=== PATIENT | female | born 1950 ===

== ENCOUNTER 2020-04-19 17:55 | Inpatient (IN) | payer MEDICARE, MEDICAID ==
[2020-04-20 06:29] LABS: Basophils # (Auto) 0.1 K/mm3 (0.0-0.1); Basophils % (Auto) 0.8 % (0.0-1.8); Eosinophils # (Auto) 0.2 K/mm3 (0.0-0.4); Eosinophils % (Auto) 3.4 % (0.0-4.3); Hematocrit 32.3 % (30.3-42.9); Lymphocytes # (Auto) 1.5 K/mm3 (1.2-5.4); Lymphocytes % (Auto) 21.1 % (13.4-35.0); Mean Corpuscular HGB Conc 34 % (30-34); Mean Corpuscular Volume 85 fl (79-97); Monocytes # (Auto) 0.8 K/mm3 (0.0-0.8); Monocytes % (Auto) 11.5 % (0.0-7.3); Platelet Count 230 K/mm3 (140-440); Red Blood Count 3.79 M/mm3 (3.65-5.03); Red Cell Distribution Width 13.3 % (13.2-15.2)
[2020-04-20 06:53] LABS: Alanine Aminotransferase 18 units/L (7-56); Albumin 3.4 g/dL (3.9-5); Blood Urea Nitrogen 25 mg/dL (7-17); Calcium 9.6 mg/dL (8.4-10.2); Chol/HDL Ratio 2.86 %; HDL Cholesterol 72 mg/dL (40-59); Hemolysis Index 4; LDL Cholesterol,Direct 126 mg/dL (50-130)
[2020-04-20 06:58] LABS: BUN/Creatinine Ratio 36
--- NOTE | 2020-04-20 08:40 | History and Physical Report ---
GP History & Physical - History of Present Illness Date of admission: 04/19/20 Date of Examination: 04/20/20 Reason for Admission: Failure of Outpatient Treatment, Unable to care for self History of Present Illness: The patient's medical record was reviewed and the patient's progress was discussed with the nursing staff. The admission note states the patient recently moved into a halfway and was not happy there. She was in the hospital for covid 19. When she left she was taken to the halfway. The patient refused to get out of the vehicle and was returned to the hospital where she spent 2 weeks waiting on psych admission. Patient can be irritable and uncooperative at times. Victoriano Ayon is a 69y/o female who was recently placed in a halfway and did not like it there. It is documented that the patient refused to get out of the car and was returned back to the hospital. During my interview with the patient today, she is lying in bed with the linen pulled over her head. She is irritable and uncooperative. She doesn't give any insight into what's going on with her or her history. She shouts "what," when I call her name. When asking the patient did she know why she was admitted into the hospital, she replied "yo u ask them, since they are the ones who brought me here." I then asked the patient was she hallucinating or feeling suicidal, she replied, "no, I was not. Like I said, ask them." The patient then placed her head back beneath the linen and stated, "I don't have anything else to say. Talk to who brought me here." PAST PSYCHIATRIC HISTORY Unable to assess PAST MEDICAL HISTORY: None reported Family Psychiatric History: None reported or documented SOCIAL HISTORY Unable to assess REVIEW OF SYSTEMS Unable to assess MENTAL STATUS EXAMINATION General Appearance and Behavior: Age appropriate, good hygiene, not wearing appropriate clothes, irritable, withdrawn Cooperation: uncooperative, guarded Psychomotor Behavior: Psychomotor normal Mood: Affect and affective range: Irritable, restricted Insight and Judgment: Impaired Memory: Impaired Attention: limited Orientation: Confused Assessment and Plan Dementia with Behavioral Disturbance Treatment Plan Patient admitted for inpatient psychiatric evaluation, medication adjustment and close monitoring The patient's behavior, mood, sleep and appetite will be closely monitored. Patient enrolled in individual and group therapeutic sessions and encouraged to attend. Patient provided with a safe and structured environment. Patient's physical health needs will be addressed by the Hospitalist. Hospitalist Consulted Labs including CBC, CMP, Lipid profile and Hemoglobin A1C levels ordered for baseline reference Social Assessment will be completed and the Medical Coordinator Pesticide Use will work with patient and family to ensure a suitable and safe disposition Medication adjustment will be made as clinically indicated Start Risperidine 0.25mg po BID Start Trazodone 50mg po qhs Hold serquel Usual Wellness Restorationist/Preservation: - Start Trazodone 50 mg po QHS - Start Melatonin 5 mg po QHS to promote circadian rhythm - Start [place]-3 for brain health, reduce impulsivity, and as adjunctive treatment for mood disorder, continue upon discharge given overall benefits. - Start B1 prophylaxis with 200 mg po for 5 days The patient agreed on the treatment plan, understood the risk, benefit, alternative treatment, potential consequence of no treatment, and gave informed consent. Initial Certification I certify that the inpatient psychiatric services are required for treatment that could reasonably be expected to improve the patient's condition for aggression and irritability Estimated days: 7 Post hospital care: primary care provider, psychiatric provider The case was staffed with Dr. Sunshine Legal Status: Voluntary Reaction to Hospitalization: Accepting Medications and Allergies Allergies Allergy/AdvReac Type Severity Reaction Status Date / Time No Known Allergies Allergy Verified 04/20/20 02:32 Home Medications Medication Instructions Recorded Confirmed Last Taken Type ALPRAZolam [Xanax TAB] 0.5 mg PO DAILY 04/20/20 04/20/20 Unknown History Cyanocobalamin (Vitamin B-12) 500 mcg PO DAILY 04/20/20 04/20/20 Unknown History [Vitamin B-12] Melatonin [Melatonin 5MG TAB] 5 m2 PO HS 04/20/20 04/20/20 Unknown History QUEtiapine [SEROquel] 12.5 mg PO DAILY 04/20/20 04/20/20 Unknown History QUEtiapine [SEROquel] 37.5 mg PO HS 04/20/20 04/20/20 Unknown History Thiamine [Vitamin B-1] 100 mg PO QDAY 04/20/20 04/20/20 Unknown History Active Meds: Active Medications Trazodone HCl (Desyrel) 50 mg PO QHS [facility] Results - Results Labs/Vitals: Laboratory Last Values WBC 7.2 K/mm3 (4.5-11.0) 04/20/20 06:12 RBC 3.79 M/mm3 (3.65-5.03) 04/20/20 06:12 Hgb 11.0 gm/dl (10.1-14.3) 04/20/20 06:12 Hct 32.3 % (30.3-42.9) 04/20/20 06:12 MCV 85 fl (79-97) 04/20/20 06:12 MCH 29 pg (28-32) 04/20/20 06:12 MCHC 34 % (30-34) 04/20/20 06:12 RDW 13.3 % (13.2-15.2) 04/20/20 06:12 Plt Count 230 K/mm3 (140-440) 04/20/20 06:12 Lymph % (Auto) 21.1 % (13.4-35.0) 04/20/20 06:12 [place] % (Auto) 11.5 % (0.0-7.3) H 04/20/20 06:12 Eos % (Auto) 3.4 % (0.0-4.3) 04/20/20 06:12 Baso % (Auto) 0.8 % (0.0-1.8) 04/20/20 06:12 Lymph # (Auto) 1.5 K/mm3 (1.2-5.4) 04/20/20 06:12 [place] # (Auto) 0.8 K/mm3 (0.0-0.8) 04/20/20 06:12 Eos # (Auto) 0.2 K/mm3 (0.0-0.4) 04/20/20 06:12 Baso # (Auto) 0.1 K/mm3 (0.0-0.1) 04/20/20 06:12 Seg Neutrophils % 63.2 % (40.0-70.0) 04/20/20 06:12 Seg Neutrophils # 4.6 K/mm3 (1.8-7.7) 04/20/20 06:12 Sodium 142 mmol/L (137-145) 04/20/20 06:12 Potassium 4.6 mmol/L (3.6-5.0) 04/20/20 06:12 Chloride 105.4 mmol/L (98-107) 04/20/20 06:12 Carbon Dioxide 32 mmol/L (22-30) H 04/20/20 06:12 Anion Gap 9 mmol/L 04/20/20 06:12 BUN 25 mg/dL (7-17) H 04/20/20 06:12 Creatinine 0.7 mg/dL (0.6-1.2) 04/20/20 06:12 Estimated GFR > 60 ml/min 04/20/20 06:12 BUN/Creatinine Ratio 36 % 04/20/20 06:12 Glucose 121 mg/dL (65-100) H 04/20/20 06:12 POC Glucose 107 mg/dL (70-105) H 04/20/20 01:36 Hemoglobin A1c 6.3 % (4-6) H 04/20/20 06:12 Calcium 9.6 mg/dL (8.4-10.2) 04/20/20 06:12 Total Bilirubin 0.20 mg/dL (0.1-1.2) 04/20/20 06:12 AST 20 units/L (5-40) 04/20/20 06:12 ALT 18 units/L (7-56) 04/20/20 06:12 Alkaline Phosphatase 107 units/L (35-129) 04/20/20 06:12 Total Protein 6.4 g/dL (6.3-8.2) 04/20/20 06:12 Albumin 3.4 g/dL (3.9-5) L 04/20/20 06:12 Albumin/Globulin Ratio 1.1 % 04/20/20 06:12 Triglycerides 63 mg/dL (2-149) 04/20/20 06:12 Cholesterol 206 mg/dL (50-199) H 04/20/20 06:12 LDL Cholesterol Direct 126 mg/dL (50-130) 04/20/20 06:12 HDL Cholesterol 72 mg/dL (40-59) H 04/20/20 06:12 Cholesterol/HDL Ratio 2.86 % 04/20/20 06:12 TSH 1.750 mlU/mL (0.270-4.200) 04/20/20 06:12 Last Vital Signs Temp 97.4 F L 04/20/20 01:35 Pulse 82 04/20/20 01:35 Resp 18 04/20/20 01:35 BP 117/66 04/20/20 01:35 Pulse Ox 98 04/20/20 01:35 Physical Examination - Constitutional Vitals: Vital Signs Temp Pulse Resp BP Pulse Ox 97.4 F L 82 18 117/66 98 04/20/20 01:35 04/20/20 01:35 04/20/20 01:35 04/20/20 01:35 04/20/20 01:35 Temperature -Last 24 Hours Temperature 97.4 F Mental Status Exam - Vital signs Last Vital Signs Temp 97.4 F L 04/20/20 01:35 Pulse 82 04/20/20 01:35 Resp 18 04/20/20 01:35 BP 117/66 04/20/20 01:35 Pulse Ox 98 04/20/20 01:35 Physician Certification - Certification Statement Physician Certification Statement: This is an acknowledgement statement that VICTORIANO AYON is a 69 year old F who requires inpatient psychiatric admission for treatment which could reasonably be expected to improve the patient's condition for Estimated period of time patient will need to remain in the hospital: [ ] Plan for post-hospital care: [ ]
[2020-04-20] MEDS: risperiDONE 0.25 MG TAB PO SCH ×2 (10:09→21:44)
[2020-04-20] MEDS: THIAMINE 100 MG TAB PO SCH (10:09)
[2020-04-20] MEDS: ALPRAZolam 0.5 MG TAB PO SCH (10:09)
[2020-04-20] MEDS: CYANOCOBALAMIN (VIT B-12) 1000 MCG TAB PO SCH (12:01)
--- NOTE | 2020-04-20 16:27 | Consultation ---
History of Present Illness - Reason for Consult Consult date: 04/20/20 - History of Present Illness 69-year-old female with no medical history admitted to the psych facility with behavioral disturbance. HPI as per psych She was cently placed in a custodial and did not like it there. It is documented that the patient refused to get out of the car and was returned back to the hospital. During my interview with the patient today, she is lying in bed with the linen pulled over her head. She is irritable and uncooperative. She doesn't give any insight into what's going on with her or her history. She shouts "what," when I call her name. When asking the patient did she know why she was admitted into the hospital, she replied "you ask them, since they are the ones who brought me here." I then asked the patient was she hallucinating or feeling suicidal, she replied, "no, I was not. Like I said, ask them." The patient then placed her head back beneath the linen and stated, "I don't have anything else to say. Talk to who brought me here." I saw and examined patient in the psych facility this morning. Has no complaints. History limited by dementia. Labs reviewed. Home medications reviewed. Past History Past Medical History: No medical history Past Surgical History: No surgical history Social history: no significant social history Medications and Allergies Allergies Allergy/AdvReac Type Severity Reaction Status Date / Time No Known Allergies Allergy Verified 04/20/20 02:32 Home Medications Medication Instructions Recorded Confirmed Last Taken Type ALPRAZolam [Xanax TAB] 0.5 mg PO DAILY 04/20/20 04/20/20 Unknown History Cyanocobalamin (Vitamin B-12) 500 mcg PO DAILY 04/20/20 04/20/20 Unknown History [Vitamin B-12] Melatonin [Melatonin 5MG TAB] 5 m2 PO HS 04/20/20 04/20/20 Unknown History QUEtiapine [SEROquel] 12.5 mg PO DAILY 04/20/20 04/20/20 Unknown History QUEtiapine [SEROquel] 37.5 mg PO HS 04/20/20 04/20/20 Unknown History Thiamine [Vitamin B-1] 100 mg PO QDAY 04/20/20 04/20/20 Unknown History Active Meds: Active Medications Alprazolam (Xanax) 0.5 mg PO DAILY ON LICENSE OF [facility] Last Admin: 04/20/20 10:09 Dose: 0.5 mg Documented by: Cyanocobalamin (Vitamin B-12) 500 mcg PO DAILY ON LICENSE OF [facility] Last Admin: 04/20/20 12:01 Dose: 500 mcg Documented by: Melatonin (Melatonin) 5 mg PO HS ON LICENSE OF [facility] Risperidone (Risperdal) 0.25 mg PO BID ON LICENSE OF [facility] Last Admin: 04/20/20 10:09 Dose: 0.25 mg Documented by: Thiamine HCl (Vitamin B-1) 100 mg PO QDAY ON LICENSE OF [facility] Last Admin: 04/20/20 10:09 Dose: 100 mg Documented by: Trazodone HCl (Desyrel) 50 mg PO QHS ON LICENSE OF [facility] Exam - Constitutional Vitals: Temp Pulse Resp BP Pulse Ox 98.9 F 94 H 18 114/50 96 04/20/20 09:50 04/20/20 09:50 04/20/20 09:50 04/20/20 09:50 04/20/20 09:50 General appearance: Present: no acute distress, well-nourished - EENT Eyes: Present: PERRL ENT: hearing intact, clear oral mucosa - Neck Neck: Present: supple, normal ROM - Respiratory Respiratory effort: normal Respiratory: bilateral: CTA - Cardiovascular Heart Sounds: Present: S1 & S2, systolic murmur. Absent: rub, click - Extremities Extremities: pulses symmetrical, No edema Peripheral Pulses: within normal limits - Abdominal General gastrointestinal: Present: soft, non-tender, non-distended, normal bowel sounds Female genitourinary: Present: normal - Integumentary Integumentary: Present: clear, warm, dry - Musculoskeletal Musculoskeletal: gait normal, strength equal bilaterally - Psychiatric Psychiatric: appropriate mood/affect, intact judgment & insight - Neurologic Neurologic: CNII-XII intact, moves all extremities Results - Labs CBC & Chem 7: 04/20/20 06:12 04/20/20 06:12 Labs: Abnormal lab results 04/20/20 04/20/20 04/20/20 Range/Units 01:36 06:12 06:12 [place] % (Auto) 11.5 H (0.0-7.3) % Carbon Dioxide 32 H (22-30) mmol/L BUN 25 H (7-17) mg/dL Glucose 121 H (65-100) mg/dL POC Glucose 107 H (70-105) mg/dL Hemoglobin A1c (4-6) % Albumin 3.4 L (3.9-5) g/dL Cholesterol 206 H (50-199) mg/dL HDL Cholesterol 72 H (40-59) mg/dL 04/20/20 Range/Units 06:12 [place] % (Auto) (0.0-7.3) % Carbon Dioxide (22-30) mmol/L BUN (7-17) mg/dL Glucose (65-100) mg/dL POC Glucose (70-105) mg/dL Hemoglobin A1c 6.3 H (4-6) % Albumin (3.9-5) g/dL Cholesterol (50-199) mg/dL HDL Cholesterol (40-59) mg/dL Assessment and Plan Dementia with behavioral disturbance Psychiatric primary Adjusting medications TSH within normal limits. Check vitamin B12 and folate. Thank you for the consult.
[2020-04-20] MEDS: MELATONIN 5 MG TAB PO SCH (21:44)
[2020-04-20] MEDS: traZODone 50 MG TAB PO SCH (21:44)
--- NOTE | 2020-04-21 08:39 | Progress Note ---
Subjective Date of service: 04/21/20 Principal diagnosis: dementia with behavioral disturbance Subjective Comment: During my interview with the patient today, she is sitting in the dayroom, she is confused. She is irritable. She has an angry affect. She says she's "doing better." The patient then states "I'm ready to go." When asking about SI/HI or hallucinations, the patient says "what, who told you that. I'm not going to answer that." She then says, "never." REVIEW OF SYSTEMS Constitutional: Negative for weight loss ENT: Negative for stridor Respiratory: Negative for cough or hemoptysis All other systems reviewed and are negative MENTAL STATUS EXAMINATION General Appearance and Behavior: Age appropriate, good hygiene, not wearing appropriate clothes, irritable, withdrawn Cooperation: uncooperative Psychomotor Behavior: Psychomotor normal, guarded Mood: "alright" Affect and affective range: Irritable, restricted Insight and Judgment: Impaired Memory: Impaired Attention: limited Orientation: Confused Assessment and Plan Dementia with Behavioral Disturbance Treatment Plan Patient admitted for inpatient psychiatric evaluation, medication adjustment and close monitoring The patient's behavior, mood, sleep and appetite will be closely monitored. Patient enrolled in individual and group therapeutic sessions and encouraged to attend. Patient provided with a safe and structured environment. Patient's physical health needs will be addressed by the Hospitalist. Hospitalist Consulted Labs including CBC, CMP, Lipid profile and Hemoglobin A1C levels ordered for baseline reference Social Assessment will be completed and the Line Mover will work with patient and family to ensure a suitable and safe disposition Medication adjustment will be made as clinically indicated Increase Risperidine 0.5mg po BID Usual Wellness Congregation/Preservation: - Start Trazodone 50 mg po QHS - Start Melatonin 5 mg po QHS to promote circadian rhythm - Start [place]-3 for brain health, reduce impulsivity, and as adjunctive treatment for mood disorder, continue upon discharge given overall benefits. - Start B1 prophylaxis with 200 mg po for 5 days The patient agreed on the treatment plan, understood the risk, benefit, alternative treatment, potential consequence of no treatment, and gave informed consent. Estimated days: 6 Post hospital care: primary care provider, psychiatric provider The case was staffed with Dr. Sunshine Medications and Allergies Allergies Allergy/AdvReac Type Severity Reaction Status Date / Time No Known Allergies Allergy Verified 04/20/20 02:32 Home Medications Medication Instructions Recorded Confirmed Last Taken Type ALPRAZolam [Xanax TAB] 0.5 mg PO DAILY 04/20/20 04/20/20 Unknown History Cyanocobalamin (Vitamin B-12) 500 mcg PO DAILY 04/20/20 04/20/20 Unknown History [Vitamin B-12] Melatonin [Melatonin 5MG TAB] 5 m2 PO HS 04/20/20 04/20/20 Unknown History QUEtiapine [SEROquel] 12.5 mg PO DAILY 04/20/20 04/20/20 Unknown History QUEtiapine [SEROquel] 37.5 mg PO HS 04/20/20 04/20/20 Unknown History Thiamine [Vitamin B-1] 100 mg PO QDAY 04/20/20 04/20/20 Unknown History Active Meds: Active Medications Alprazolam (Xanax) 0.5 mg PO DAILY [facility] Last Admin: 04/20/20 10:09 Dose: 0.5 mg Documented by: Cyanocobalamin (Vitamin B-12) 500 mcg PO DAILY [facility] Last Admin: 04/20/20 12:01 Dose: 500 mcg Documented by: Melatonin (Melatonin) 5 mg PO [facility] Last Admin: 04/20/20 21:44 Dose: 5 mg Documented by: Risperidone (Risperdal) 0.25 mg PO BID [facility] Last Admin: 04/20/20 21:44 Dose: 0.25 mg Documented by: Thiamine HCl (Vitamin B-1) 100 mg PO QDAY [facility] Last Admin: 04/20/20 10:09 Dose: 100 mg Documented by: Trazodone HCl (Desyrel) 50 mg PO QHS [facility] Last Admin: 04/20/20 21:44 Dose: 50 mg Documented by: Results - Results Labs/Vitals: Laboratory Last Values WBC 7.2 K/mm3 (4.5-11.0) 04/20/20 06:12 RBC 3.79 M/mm3 (3.65-5.03) 04/20/20 06:12 Hgb 11.0 gm/dl (10.1-14.3) 04/20/20 06:12 Hct 32.3 % (30.3-42.9) 04/20/20 06:12 MCV 85 fl (79-97) 04/20/20 06:12 MCH 29 pg (28-32) 04/20/20 06:12 MCHC 34 % (30-34) 04/20/20 06:12 RDW 13.3 % (13.2-15.2) 04/20/20 06:12 Plt Count 230 K/mm3 (140-440) 04/20/20 06:12 Lymph % (Auto) 21.1 % (13.4-35.0) 04/20/20 06:12 [place] % (Auto) 11.5 % (0.0-7.3) H 04/20/20 06:12 Eos % (Auto) 3.4 % (0.0-4.3) 04/20/20 06:12 Baso % (Auto) 0.8 % (0.0-1.8) 04/20/20 06:12 Lymph # (Auto) 1.5 K/mm3 (1.2-5.4) 04/20/20 06:12 [place] # (Auto) 0.8 K/mm3 (0.0-0.8) 04/20/20 06:12 Eos # (Auto) 0.2 K/mm3 (0.0-0.4) 04/20/20 06:12 Baso # (Auto) 0.1 K/mm3 (0.0-0.1) 04/20/20 06:12 Seg Neutrophils % 63.2 % (40.0-70.0) 04/20/20 06:12 Seg Neutrophils # 4.6 K/mm3 (1.8-7.7) 04/20/20 06:12 Sodium 142 mmol/L (137-145) 04/20/20 06:12 Potassium 4.6 mmol/L (3.6-5.0) 04/20/20 06:12 Chloride 105.4 mmol/L (98-107) 04/20/20 06:12 Carbon Dioxide 32 mmol/L (22-30) H 04/20/20 06:12 Anion Gap 9 mmol/L 04/20/20 06:12 BUN 25 mg/dL (7-17) H 04/20/20 06:12 Creatinine 0.7 mg/dL (0.6-1.2) 04/20/20 06:12 Estimated GFR > 60 ml/min 04/20/20 06:12 BUN/Creatinine Ratio 36 % 04/20/20 06:12 Glucose 121 mg/dL (65-100) H 04/20/20 06:12 POC Glucose 107 mg/dL (70-105) H 04/20/20 01:36 Hemoglobin A1c 6.3 % (4-6) H 04/20/20 06:12 Calcium 9.6 mg/dL (8.4-10.2) 04/20/20 06:12 Total Bilirubin 0.20 mg/dL (0.1-1.2) 04/20/20 06:12 AST 20 units/L (5-40) 04/20/20 06:12 ALT 18 units/L (7-56) 04/20/20 06:12 Alkaline Phosphatase 107 units/L (35-129) 04/20/20 06:12 Total Protein 6.4 g/dL (6.3-8.2) 04/20/20 06:12 Albumin 3.4 g/dL (3.9-5) L 04/20/20 06:12 Albumin/Globulin Ratio 1.1 % 04/20/20 06:12 Triglycerides 63 mg/dL (2-149) 04/20/20 06:12 Cholesterol 206 mg/dL (50-199) H 04/20/20 06:12 LDL Cholesterol Direct 126 mg/dL (50-130) 04/20/20 06:12 HDL Cholesterol 72 mg/dL (40-59) H 04/20/20 06:12 Cholesterol/HDL Ratio 2.86 % 04/20/20 06:12 Vitamin B12 511.5 pg/mL (211-911) 04/20/20 06:12 Folate 10.20 ng/mL (7.3-26.0) 04/20/20 06:12 TSH 1.750 mlU/mL (0.270-4.200) 04/20/20 06:12 Last Vital Signs Temp 98.4 F 04/21/20 08:28 Pulse 93 H 04/21/20 08:28 Resp 18 04/21/20 08:28 BP 119/44 04/21/20 08:28 Pulse Ox 98 04/21/20 08:28
[2020-04-21] MEDS: risperiDONE 0.25 MG TAB PO SCH ×2 (09:07→21:30)
[2020-04-21] MEDS: CYANOCOBALAMIN (VIT B-12) 1000 MCG TAB PO SCH (09:08)
[2020-04-21] MEDS: ALPRAZolam 0.5 MG TAB PO SCH (09:08)
[2020-04-21] MEDS: THIAMINE 100 MG TAB PO SCH (09:08)
--- NOTE | 2020-04-21 20:40 | Progress Note ---
Assessment and Plan - Patient Problems (1) Vascular dementia Current Visit: Yes Status: Acute Qualifiers: Dementia behavioral disturbance: without behavioral disturbance Qualified Code(s): F01.50 - Vascular dementia without behavioral disturbance Plan to address problem: Verbal prompting, verbal redirection, benzodiazepine therapy as clinically indicated, supportive care. (2) Cerebral atherosclerosis Current Visit: Yes Status: Acute Plan to address problem: Risk factor reduction, supportive care. History Interval history: 69 YO Female with Vascular Dementia, Cerebral Atherosclerosis admitted to [facility] for psychiatric stabilization. Patient resting comfortably. Patient cooperative. Patient denies complaints. No reported nursing events. Hospitalist Physical - Constitutional Vitals: Temp Pulse Resp BP Pulse Ox 98.4 F 93 H 18 119/44 98 04/21/20 08:28 04/21/20 08:28 04/21/20 08:28 04/21/20 08:28 04/21/20 08:28 General appearance: Present: no acute distress, well-nourished - EENT Eyes: Present: PERRL ENT: hearing intact - Neck Neck: Present: supple - Respiratory Respiratory: bilateral: CTA - Cardiovascular Rhythm: regular Heart Sounds: Present: S1 & S2 - Extremities Extremities: no ischemia Peripheral Pulses: within normal limits - Abdominal General gastrointestinal: soft, non-tender, non-distended - Integumentary Integumentary: Present: clear, dry - Psychiatric Psychiatric: cooperative - Neurologic Neurologic: CNII-XII intact Results - Labs CBC & Chem 7: 04/20/20 06:12 04/20/20 06:12 Labs: Laboratory Last Values WBC 7.2 K/mm3 (4.5-11.0) 04/20/20 06:12 RBC 3.79 M/mm3 (3.65-5.03) 04/20/20 06:12 Hgb 11.0 gm/dl (10.1-14.3) 04/20/20 06:12 Hct 32.3 % (30.3-42.9) 04/20/20 06:12 MCV 85 fl (79-97) 04/20/20 06:12 MCH 29 pg (28-32) 04/20/20 06:12 MCHC 34 % (30-34) 04/20/20 06:12 RDW 13.3 % (13.2-15.2) 04/20/20 06:12 Plt Count 230 K/mm3 (140-440) 04/20/20 06:12 Lymph % (Auto) 21.1 % (13.4-35.0) 04/20/20 06:12 [place] % (Auto) 11.5 % (0.0-7.3) H 04/20/20 06:12 Eos % (Auto) 3.4 % (0.0-4.3) 04/20/20 06:12 Baso % (Auto) 0.8 % (0.0-1.8) 04/20/20 06:12 Lymph # (Auto) 1.5 K/mm3 (1.2-5.4) 04/20/20 06:12 [place] # (Auto) 0.8 K/mm3 (0.0-0.8) 04/20/20 06:12 Eos # (Auto) 0.2 K/mm3 (0.0-0.4) 04/20/20 06:12 Baso # (Auto) 0.1 K/mm3 (0.0-0.1) 04/20/20 06:12 Seg Neutrophils % 63.2 % (40.0-70.0) 04/20/20 06:12 Seg Neutrophils # 4.6 K/mm3 (1.8-7.7) 04/20/20 06:12 Sodium 142 mmol/L (137-145) 04/20/20 06:12 Potassium 4.6 mmol/L (3.6-5.0) 04/20/20 06:12 Chloride 105.4 mmol/L (98-107) 04/20/20 06:12 Carbon Dioxide 32 mmol/L (22-30) H 04/20/20 06:12 Anion Gap 9 mmol/L 04/20/20 06:12 BUN 25 mg/dL (7-17) H 04/20/20 06:12 Creatinine 0.7 mg/dL (0.6-1.2) 04/20/20 06:12 Estimated GFR > 60 ml/min 04/20/20 06:12 BUN/Creatinine Ratio 36 % 04/20/20 06:12 Glucose 121 mg/dL (65-100) H 04/20/20 06:12 POC Glucose 107 mg/dL (70-105) H 04/20/20 01:36 Hemoglobin A1c 6.3 % (4-6) H 04/20/20 06:12 Calcium 9.6 mg/dL (8.4-10.2) 04/20/20 06:12 Total Bilirubin 0.20 mg/dL (0.1-1.2) 04/20/20 06:12 AST 20 units/L (5-40) 04/20/20 06:12 ALT 18 units/L (7-56) 04/20/20 06:12 Alkaline Phosphatase 107 units/L (35-129) 04/20/20 06:12 Total Protein 6.4 g/dL (6.3-8.2) 04/20/20 06:12 Albumin 3.4 g/dL (3.9-5) L 04/20/20 06:12 Albumin/Globulin Ratio 1.1 % 04/20/20 06:12 Triglycerides 63 mg/dL (2-149) 04/20/20 06:12 Cholesterol 206 mg/dL (50-199) H 04/20/20 06:12 LDL Cholesterol Direct 126 mg/dL (50-130) 04/20/20 06:12 HDL Cholesterol 72 mg/dL (40-59) H 04/20/20 06:12 Cholesterol/HDL Ratio 2.86 % 04/20/20 06:12 Vitamin B12 511.5 pg/mL (211-911) 04/20/20 06:12 Folate 10.20 ng/mL (7.3-26.0) 04/20/20 06:12 TSH 1.750 mlU/mL (0.270-4.200) 04/20/20 06:12 Ghotra/IV: Voiding Method Toilet Active Medications - Current Medications Current Medications: Generic Name Dose Route Start Last Admin Trade Name Freq PRN Reason Stop Dose Admin Alprazolam 0.5 mg 04/20/20 10:00 04/21/20 09:08 Xanax PO 0.5 mg DAILY [facility] Administration Cyanocobalamin 500 mcg 04/20/20 10:00 04/21/20 09:08 Vitamin B-12 PO 500 mcg DAILY [facility] Administration Melatonin 5 mg 04/20/20 22:00 04/20/20 21:44 Melatonin PO 5 mg HS [facility] Administration Risperidone 0.5 mg 04/21/20 10:00 04/21/20 09:07 Risperdal PO 0.5 mg BID [facility] Administration Thiamine HCl 100 mg 04/20/20 10:00 04/21/20 09:08 Vitamin B-1 PO 100 mg QDAY [facility] Administration Trazodone HCl 50 mg 04/20/20 22:00 04/20/20 21:44 Desyrel PO 50 mg QHS [facility] Administration
[2020-04-21] MEDS: traZODone 50 MG TAB PO SCH (21:31)
[2020-04-21] MEDS: MELATONIN 5 MG TAB PO SCH (21:31)
--- NOTE | 2020-04-22 08:09 | Progress Note ---
Subjective Date of service: 04/22/20 Principal diagnosis: dementia with behavioral disturbance Subjective Comment: The patient's medical record was reviewed and the patient's progress was discussed with the nursing staff. The nurse note states the patient denies pain, SI/HI. She is Preoccupy and verbalizing the need to go home to meet with her boyfriend. Patient is irritable, using F and B words, During my interview with the patient today, she is lying down. She is much more calm and cooperative today. She is confused. The patient does not exhibit any signs of irritability as previous days. She greats me with "good morning" as I'm entering her room. The patient says she's "doing okay." She asks if I thought she could go home today. The patient denies SI/HI or hallucinations of any kind. The patient becomes tearful at the end of the visit, when talking about going home. Reason for continued inpatient treatment: Although the patient appeared to be improved today, she is easily irritated and agitated, per nursing staff. Will continue to treat the patient and monitor for effectiveness of meds and any adverse effects. REVIEW OF SYSTEMS Constitutional: Negative for weight loss ENT: Negative for stridor Respiratory: Negative for cough or hemoptysis All other systems reviewed and are negative MENTAL STATUS EXAMINATION General Appearance and Behavior: Age appropriate, good hygiene, not wearing appropriate clothes, calm and cooperative Cooperation: cooperative Psychomotor Behavior: Psychomotor normal Mood: "alright" Affect and affective range: congruent with stated mood Suicidal thoughts: Denies Homicidal: Denies Hallucinations: Denies Delusions: None elicited Insight and Judgment: Impaired Memory: Impaired Attention: limited Orientation: Confused Assessment and Plan Dementia with Behavioral Disturbance Treatment Plan Patient admitted for inpatient psychiatric evaluation, medication adjustment and close monitoring The patient's behavior, mood, sleep and appetite will be closely monitored. Patient enrolled in individual and group therapeutic sessions and encouraged to attend. Patient provided with a safe and structured environment. Patient's physical health needs will be addressed by the Hospitalist. Hospitalist Consulted Labs including CBC, CMP, Lipid profile and Hemoglobin A1C levels ordered for baseline reference Social Assessment will be completed and the Electrical & Instrumentation Supervisor will work with patient and family to ensure a suitable and safe disposition Medication adjustment will be made as clinically indicated Increase Risperidine 1mg po BID Start Depakote DR 125mg po BID Usual Wellness Anabaptism/Preservation: - Start Trazodone 50 mg po QHS - Start Melatonin 5 mg po QHS to promote circadian rhythm - Start [place]-3 for brain health, reduce impulsivity, and as adjunctive treatment for mood disorder, continue upon discharge given overall benefits. - Start B1 prophylaxis with 200 mg po for 5 days The patient agreed on the treatment plan, understood the risk, benefit, alternative treatment, potential consequence of no treatment, and gave informed consent. Estimated days: 3 Post hospital care: primary care provider, psychiatric provider The case was staffed with Dr. Sunshine Medications and Allergies Allergies Allergy/AdvReac Type Severity Reaction Status Date / Time No Known Allergies Allergy Verified 04/20/20 02:32 Home Medications Medication Instructions Recorded Confirmed Last Taken Type ALPRAZolam [Xanax TAB] 0.5 mg PO DAILY 04/20/20 04/20/20 Unknown History Cyanocobalamin (Vitamin B-12) 500 mcg PO DAILY 04/20/20 04/20/20 Unknown History [Vitamin B-12] Melatonin [Melatonin 5MG TAB] 5 m2 PO HS 04/20/20 04/20/20 Unknown History QUEtiapine [SEROquel] 12.5 mg PO DAILY 04/20/20 04/20/20 Unknown History QUEtiapine [SEROquel] 37.5 mg PO HS 04/20/20 04/20/20 Unknown History Thiamine [Vitamin B-1] 100 mg PO QDAY 04/20/20 04/20/20 Unknown History Active Meds: Active Medications Alprazolam (Xanax) 0.5 mg PO DAILY [facility] Last Admin: 04/21/20 09:08 Dose: 0.5 mg Documented by: Cyanocobalamin (Vitamin B-12) 500 mcg PO DAILY [facility] Last Admin: 04/21/20 09:08 Dose: 500 mcg Documented by: Melatonin (Melatonin) 5 mg PO [facility] Last Admin: 04/21/20 21:31 Dose: 5 mg Documented by: Risperidone (Risperdal) 0.5 mg PO BID [facility] Last Admin: 04/21/20 21:30 Dose: 0.5 mg Documented by: Thiamine HCl (Vitamin B-1) 100 mg PO QDAY [facility] Last Admin: 04/21/20 09:08 Dose: 100 mg Documented by: Trazodone HCl (Desyrel) 50 mg PO QHS [facility] Last Admin: 04/21/20 21:31 Dose: 50 mg Documented by: Results - Results Labs/Vitals: Laboratory Last Values WBC 7.2 K/mm3 (4.5-11.0) 04/20/20 06:12 RBC 3.79 M/mm3 (3.65-5.03) 04/20/20 06:12 Hgb 11.0 gm/dl (10.1-14.3) 04/20/20 06:12 Hct 32.3 % (30.3-42.9) 04/20/20 06:12 MCV 85 fl (79-97) 04/20/20 06:12 MCH 29 pg (28-32) 04/20/20 06:12 MCHC 34 % (30-34) 04/20/20 06:12 RDW 13.3 % (13.2-15.2) 04/20/20 06:12 Plt Count 230 K/mm3 (140-440) 04/20/20 06:12 Lymph % (Auto) 21.1 % (13.4-35.0) 04/20/20 06:12 [place] % (Auto) 11.5 % (0.0-7.3) H 04/20/20 06:12 Eos % (Auto) 3.4 % (0.0-4.3) 04/20/20 06:12 Baso % (Auto) 0.8 % (0.0-1.8) 04/20/20 06:12 Lymph # (Auto) 1.5 K/mm3 (1.2-5.4) 04/20/20 06:12 [place] # (Auto) 0.8 K/mm3 (0.0-0.8) 04/20/20 06:12 Eos # (Auto) 0.2 K/mm3 (0.0-0.4) 04/20/20 06:12 Baso # (Auto) 0.1 K/mm3 (0.0-0.1) 04/20/20 06:12 Seg Neutrophils % 63.2 % (40.0-70.0) 04/20/20 06:12 Seg Neutrophils # 4.6 K/mm3 (1.8-7.7) 04/20/20 06:12 Sodium 142 mmol/L (137-145) 04/20/20 06:12 Potassium 4.6 mmol/L (3.6-5.0) 04/20/20 06:12 Chloride 105.4 mmol/L (98-107) 04/20/20 06:12 Carbon Dioxide 32 mmol/L (22-30) H 04/20/20 06:12 Anion Gap 9 mmol/L 04/20/20 06:12 BUN 25 mg/dL (7-17) H 04/20/20 06:12 Creatinine 0.7 mg/dL (0.6-1.2) 04/20/20 06:12 Estimated GFR > 60 ml/min 04/20/20 06:12 BUN/Creatinine Ratio 36 % 04/20/20 06:12 Glucose 121 mg/dL (65-100) H 04/20/20 06:12 POC Glucose 107 mg/dL (70-105) H 04/20/20 01:36 Hemoglobin A1c 6.3 % (4-6) H 04/20/20 06:12 Calcium 9.6 mg/dL (8.4-10.2) 04/20/20 06:12 Total Bilirubin 0.20 mg/dL (0.1-1.2) 04/20/20 06:12 AST 20 units/L (5-40) 04/20/20 06:12 ALT 18 units/L (7-56) 04/20/20 06:12 Alkaline Phosphatase 107 units/L (35-129) 04/20/20 06:12 Total Protein 6.4 g/dL (6.3-8.2) 04/20/20 06:12 Albumin 3.4 g/dL (3.9-5) L 04/20/20 06:12 Albumin/Globulin Ratio 1.1 % 04/20/20 06:12 Triglycerides 63 mg/dL (2-149) 04/20/20 06:12 Cholesterol 206 mg/dL (50-199) H 04/20/20 06:12 LDL Cholesterol Direct 126 mg/dL (50-130) 04/20/20 06:12 HDL Cholesterol 72 mg/dL (40-59) H 04/20/20 06:12 Cholesterol/HDL Ratio 2.86 % 04/20/20 06:12 Vitamin B12 511.5 pg/mL (211-911) 04/20/20 06:12 Folate 10.20 ng/mL (7.3-26.0) 04/20/20 06:12 TSH 1.750 mlU/mL (0.270-4.200) 04/20/20 06:12 Last Vital Signs Temp 99.0 F 04/21/20 22:00 Pulse 99 H 04/21/20 22:00 Resp 20 04/21/20 22:00 BP 147/84 04/21/20 22:00 Pulse Ox 97 04/21/20 22:00
[2020-04-22] MEDS: THIAMINE 100 MG TAB PO SCH (10:10)
[2020-04-22] MEDS: CYANOCOBALAMIN (VIT B-12) 1000 MCG TAB PO SCH (10:10)
[2020-04-22] MEDS: DIVALPROEX DR 125 MG TAB PO SCH ×2 (10:11→21:17)
[2020-04-22] MEDS: risperiDONE 1 MG TAB PO SCH ×2 (10:11→21:18)
[2020-04-22] MEDS: ALPRAZolam 0.5 MG TAB PO SCH (10:11)
[2020-04-22] MEDS: traZODone 50 MG TAB PO SCH (21:18)
[2020-04-22] MEDS: MELATONIN 5 MG TAB PO SCH (21:18)
--- NOTE | 2020-04-23 08:08 | Progress Note ---
Subjective Date of service: 04/23/20 Principal diagnosis: dementia with behavioral disturbance Subjective Comment: The patient's medical record was reviewed and the patient's progress was discussed with the nursing staff. The nurse note states the patient spent the evening in activity room interacting with peer, pt is alert and oriented to person and place, calm and cooperative, no behavioral issue, able to make needs known, medication compliant, good appetite, no distress noted. During my interview with the patient today, she is lying down. She is much more calm and cooperative today. She is confused. She is pleasant this morning. She greets me as I'm entering the room "hey sweetie." She says she slept good. The patient is inquiring about going home. She denies SI/HI. She also denies hallucinations. Reason for continued inpatient treatment: The patient appears to be progressing well. She has had episodes of being easily irritated and agitated. Will continue to treat the patient and monitor for effectiveness of meds and any adverse effects. The patient will need placement in order to ensue a safe discharge. REVIEW OF SYSTEMS Constitutional: Negative for weight loss ENT: Negative for stridor Respiratory: Negative for cough or hemoptysis All other systems reviewed and are negative MENTAL STATUS EXAMINATION General Appearance and Behavior: Age appropriate, good hygiene, not wearing appropriate clothes, calm and cooperative Cooperation: cooperative Psychomotor Behavior: Psychomotor normal Mood: "alright" Affect and affective range: congruent with stated mood Suicidal thoughts: Denies Homicidal: Denies Hallucinations: Denies Delusions: None elicited Insight and Judgment: Impaired Memory: Impaired Attention: limited Orientation: Confused Assessment and Plan Dementia with Behavioral Disturbance Treatment Plan Patient admitted for inpatient psychiatric evaluation, medication adjustment and close monitoring The patient's behavior, mood, sleep and appetite will be closely monitored. Patient enrolled in individual and group therapeutic sessions and encouraged to attend. Patient provided with a safe and structured environment. Patient's physical health needs will be addressed by the Hospitalist. Hospitalist Consulted Labs including CBC, CMP, Lipid profile and Hemoglobin A1C levels ordered for baseline reference Social Assessment will be completed and the Circus Rider will work with patient and family to ensure a suitable and safe disposition Medication adjustment will be made as clinically indicated Increase Risperidine 1mg po BID yesterday Start Depakote DR 125mg po BID yesterday No changes made today Usual Wellness Worship/Preservation: - Start Trazodone 50 mg po QHS - Start Melatonin 5 mg po QHS to promote circadian rhythm - Start [place]-3 for brain health, reduce impulsivity, and as adjunctive treatment for mood disorder, continue upon discharge given overall benefits. - Start B1 prophylaxis with 200 mg po for 5 days The patient agreed on the treatment plan, understood the risk, benefit, alternative treatment, potential consequence of no treatment, and gave informed consent. Estimated days: 2 Post hospital care: primary care provider, psychiatric provider The case was staffed with Dr. Sunshine Medications and Allergies Allergies Allergy/AdvReac Type Severity Reaction Status Date / Time No Known Allergies Allergy Verified 04/20/20 02:32 Home Medications Medication Instructions Recorded Confirmed Last Taken Type ALPRAZolam [Xanax TAB] 0.5 mg PO DAILY 04/20/20 04/20/20 Unknown History Cyanocobalamin (Vitamin B-12) 500 mcg PO DAILY 04/20/20 04/20/20 Unknown History [Vitamin B-12] Melatonin [Melatonin 5MG TAB] 5 m2 PO HS 04/20/20 04/20/20 Unknown History QUEtiapine [SEROquel] 12.5 mg PO DAILY 04/20/20 04/20/20 Unknown History QUEtiapine [SEROquel] 37.5 mg PO HS 04/20/20 04/20/20 Unknown History Thiamine [Vitamin B-1] 100 mg PO QDAY 04/20/20 04/20/20 Unknown History Active Meds: Active Medications Alprazolam (Xanax) 0.5 mg PO DAILY [facility] Last Admin: 04/22/20 10:11 Dose: 0.5 mg Documented by: Cyanocobalamin (Vitamin B-12) 500 mcg PO DAILY [facility] Last Admin: 04/22/20 10:10 Dose: 500 mcg Documented by: Divalproex Sodium (Depakote Dr) 125 mg PO BID [facility] Last Admin: 04/22/20 21:17 Dose: 125 mg Documented by: Melatonin (Melatonin) 5 mg PO [facility] Last Admin: 04/22/20 21:18 Dose: 5 mg Documented by: Risperidone (Risperdal) 1 mg PO BID [facility] Last Admin: 04/22/20 21:18 Dose: 1 mg Documented by: Thiamine HCl (Vitamin B-1) 100 mg PO QDAY [facility] Last Admin: 04/22/20 10:10 Dose: 100 mg Documented by: Trazodone HCl (Desyrel) 50 mg PO QHS [facility] Last Admin: 04/22/20 21:18 Dose: 50 mg Documented by: Results - Results Labs/Vitals: Laboratory Last Values WBC 7.2 K/mm3 (4.5-11.0) 04/20/20 06:12 RBC 3.79 M/mm3 (3.65-5.03) 04/20/20 06:12 Hgb 11.0 gm/dl (10.1-14.3) 04/20/20 06:12 Hct 32.3 % (30.3-42.9) 04/20/20 06:12 MCV 85 fl (79-97) 04/20/20 06:12 MCH 29 pg (28-32) 04/20/20 06:12 MCHC 34 % (30-34) 04/20/20 06:12 RDW 13.3 % (13.2-15.2) 04/20/20 06:12 Plt Count 230 K/mm3 (140-440) 04/20/20 06:12 Lymph % (Auto) 21.1 % (13.4-35.0) 04/20/20 06:12 [place] % (Auto) 11.5 % (0.0-7.3) H 04/20/20 06:12 Eos % (Auto) 3.4 % (0.0-4.3) 04/20/20 06:12 Baso % (Auto) 0.8 % (0.0-1.8) 04/20/20 06:12 Lymph # (Auto) 1.5 K/mm3 (1.2-5.4) 04/20/20 06:12 [place] # (Auto) 0.8 K/mm3 (0.0-0.8) 04/20/20 06:12 Eos # (Auto) 0.2 K/mm3 (0.0-0.4) 04/20/20 06:12 Baso # (Auto) 0.1 K/mm3 (0.0-0.1) 04/20/20 06:12 Seg Neutrophils % 63.2 % (40.0-70.0) 04/20/20 06:12 Seg Neutrophils # 4.6 K/mm3 (1.8-7.7) 04/20/20 06:12 Sodium 142 mmol/L (137-145) 04/20/20 06:12 Potassium 4.6 mmol/L (3.6-5.0) 04/20/20 06:12 Chloride 105.4 mmol/L (98-107) 04/20/20 06:12 Carbon Dioxide 32 mmol/L (22-30) H 04/20/20 06:12 Anion Gap 9 mmol/L 04/20/20 06:12 BUN 25 mg/dL (7-17) H 04/20/20 06:12 Creatinine 0.7 mg/dL (0.6-1.2) 04/20/20 06:12 Estimated GFR > 60 ml/min 04/20/20 06:12 BUN/Creatinine Ratio 36 % 04/20/20 06:12 Glucose 121 mg/dL (65-100) H 04/20/20 06:12 POC Glucose 106 mg/dL (70-105) H 04/23/20 06:45 Hemoglobin A1c 6.3 % (4-6) H 04/20/20 06:12 Calcium 9.6 mg/dL (8.4-10.2) 04/20/20 06:12 Total Bilirubin 0.20 mg/dL (0.1-1.2) 04/20/20 06:12 AST 20 units/L (5-40) 04/20/20 06:12 ALT 18 units/L (7-56) 04/20/20 06:12 Alkaline Phosphatase 107 units/L (35-129) 04/20/20 06:12 Total Protein 6.4 g/dL (6.3-8.2) 04/20/20 06:12 Albumin 3.4 g/dL (3.9-5) L 04/20/20 06:12 Albumin/Globulin Ratio 1.1 % 04/20/20 06:12 Triglycerides 63 mg/dL (2-149) 04/20/20 06:12 Cholesterol 206 mg/dL (50-199) H 04/20/20 06:12 LDL Cholesterol Direct 126 mg/dL (50-130) 04/20/20 06:12 HDL Cholesterol 72 mg/dL (40-59) H 04/20/20 06:12 Cholesterol/HDL Ratio 2.86 % 04/20/20 06:12 Vitamin B12 511.5 pg/mL (211-911) 04/20/20 06:12 Folate 10.20 ng/mL (7.3-26.0) 04/20/20 06:12 TSH 1.750 mlU/mL (0.270-4.200) 04/20/20 06:12 Last Vital Signs Temp 98.1 F 04/22/20 22:00 Pulse 80 04/22/20 22:00 Resp 16 04/22/20 22:00 BP 105/60 04/22/20 22:00 Pulse Ox 99 04/22/20 22:00
[2020-04-23] MEDS: DIVALPROEX DR 125 MG TAB PO SCH ×2 (09:08→21:25)
[2020-04-23] MEDS: THIAMINE 100 MG TAB PO SCH (09:08)
[2020-04-23] MEDS: ALPRAZolam 0.5 MG TAB PO SCH (09:08)
[2020-04-23] MEDS: risperiDONE 1 MG TAB PO SCH ×2 (09:08→21:25)
[2020-04-23] MEDS: CYANOCOBALAMIN (VIT B-12) 1000 MCG TAB PO SCH (09:09)
[2020-04-23] MEDS: MELATONIN 5 MG TAB PO SCH (21:25)
[2020-04-23] MEDS: traZODone 50 MG TAB PO SCH (21:25)
--- NOTE | 2020-04-24 07:28 | Progress Note ---
Subjective Date of service: 04/24/20 Principal diagnosis: dementia with behavioral disturbance Subjective Comment: Per Psych Nurse: Today the patient interacted appropriately with her peers. She was incontinent of urine x 3. Patient was medication compliant. She denies si/hi/ah/vh. This evening the patient smiled at times. She reports she is looking forward to going home tomorrow. She interacted well and was medication compliant. Will continue to monitor patient for safety. Psych Progress Patient projected to be discharged today but no placement yet, no behavioral disturbances, no acute concerns. Patient reports she is doing just fine and ready to go home, reports doing a lot better. Reason for continued inpatient treatment: Patient ready to be discharged pending safety discharge and placement. REVIEW OF SYSTEMS Constitutional: Negative for weight loss ENT: Negative for stridor Respiratory: Negative for cough or hemoptysis All other systems reviewed and are negative MENTAL STATUS EXAMINATION General Appearance and Behavior: Age appropriate, good hygiene, not wearing appropriate clothes, calm and cooperative Cooperation: cooperative Psychomotor Behavior: Psychomotor normal Mood: "alright" Affect and affective range: congruent with stated mood Suicidal thoughts: Denies Homicidal: Denies Hallucinations: Denies Delusions: None elicited Insight and Judgment: Impaired Memory: Impaired Attention: limited Orientation: Confused Assessment and Plan Dementia with Behavioral Disturbance Treatment Plan Patient admitted for inpatient psychiatric evaluation, medication adjustment and close monitoring The patient's behavior, mood, sleep and appetite will be closely monitored. Patient enrolled in individual and group therapeutic sessions and encouraged to attend. Patient provided with a safe and structured environment. Patient's physical health needs will be addressed by the Hospitalist. Hospitalist Consulted Labs including CBC, CMP, Lipid profile and Hemoglobin A1C levels ordered for baseline reference Social Assessment will be completed and the Theatre Program Director will work with patient and family to ensure a suitable and safe disposition Medication adjustment will be made as clinically indicated No changes made today Usual Wellness Religion/Preservation: The patient agreed on the treatment plan, understood the risk, benefit, alternative treatment, potential consequence of no treatment, and gave informed consent. Estimated days: 1 Post hospital care: primary care provider, psychiatric provider The case was staffed with Dr. Sunshine Medications and Allergies Allergies Allergy/AdvReac Type Severity Reaction Status Date / Time No Known Allergies Allergy Verified 04/20/20 02:32 Home Medications Medication Instructions Recorded Confirmed Last Taken Type ALPRAZolam [Xanax TAB] 0.5 mg PO DAILY 04/20/20 04/20/20 Unknown History Cyanocobalamin (Vitamin B-12) 500 mcg PO DAILY 04/20/20 04/20/20 Unknown History [Vitamin B-12] Melatonin [Melatonin 5MG TAB] 5 m2 PO HS 04/20/20 04/20/20 Unknown History QUEtiapine [SEROquel] 12.5 mg PO DAILY 04/20/20 04/20/20 Unknown History QUEtiapine [SEROquel] 37.5 mg PO HS 04/20/20 04/20/20 Unknown History Thiamine [Vitamin B-1] 100 mg PO QDAY 04/20/20 04/20/20 Unknown History Active Meds: Active Medications Alprazolam (Xanax) 0.5 mg PO DAILY [facility] Last Admin: 04/23/20 09:08 Dose: 0.5 mg Documented by: Cyanocobalamin (Vitamin B-12) 500 mcg PO DAILY [facility] Last Admin: 04/23/20 09:09 Dose: 500 mcg Documented by: Divalproex Sodium (Depakote Dr) 125 mg PO BID [facility] Last Admin: 04/23/20 21:25 Dose: 125 mg Documented by: Melatonin (Melatonin) 5 mg PO [facility] Last Admin: 04/23/20 21:25 Dose: 5 mg Documented by: Risperidone (Risperdal) 1 mg PO BID [facility] Last Admin: 04/23/20 21:25 Dose: 1 mg Documented by: Thiamine HCl (Vitamin B-1) 100 mg PO QDAY [facility] Last Admin: 04/23/20 09:08 Dose: 100 mg Documented by: Trazodone HCl (Desyrel) 50 mg PO QHS [facility] Last Admin: 04/23/20 21:25 Dose: 50 mg Documented by: Results - Results Labs/Vitals: Laboratory Last Values WBC 7.2 K/mm3 (4.5-11.0) 04/20/20 06:12 RBC 3.79 M/mm3 (3.65-5.03) 04/20/20 06:12 Hgb 11.0 gm/dl (10.1-14.3) 04/20/20 06:12 Hct 32.3 % (30.3-42.9) 04/20/20 06:12 MCV 85 fl (79-97) 04/20/20 06:12 MCH 29 pg (28-32) 04/20/20 06:12 MCHC 34 % (30-34) 04/20/20 06:12 RDW 13.3 % (13.2-15.2) 04/20/20 06:12 Plt Count 230 K/mm3 (140-440) 04/20/20 06:12 Lymph % (Auto) 21.1 % (13.4-35.0) 04/20/20 06:12 [place] % (Auto) 11.5 % (0.0-7.3) H 04/20/20 06:12 Eos % (Auto) 3.4 % (0.0-4.3) 04/20/20 06:12 Baso % (Auto) 0.8 % (0.0-1.8) 04/20/20 06:12 Lymph # (Auto) 1.5 K/mm3 (1.2-5.4) 04/20/20 06:12 [place] # (Auto) 0.8 K/mm3 (0.0-0.8) 04/20/20 06:12 Eos # (Auto) 0.2 K/mm3 (0.0-0.4) 04/20/20 06:12 Baso # (Auto) 0.1 K/mm3 (0.0-0.1) 04/20/20 06:12 Seg Neutrophils % 63.2 % (40.0-70.0) 04/20/20 06:12 Seg Neutrophils # 4.6 K/mm3 (1.8-7.7) 04/20/20 06:12 Sodium 142 mmol/L (137-145) 04/20/20 06:12 Potassium 4.6 mmol/L (3.6-5.0) 04/20/20 06:12 Chloride 105.4 mmol/L (98-107) 04/20/20 06:12 Carbon Dioxide 32 mmol/L (22-30) H 04/20/20 06:12 Anion Gap 9 mmol/L 04/20/20 06:12 BUN 25 mg/dL (7-17) H 04/20/20 06:12 Creatinine 0.7 mg/dL (0.6-1.2) 04/20/20 06:12 Estimated GFR > 60 ml/min 04/20/20 06:12 BUN/Creatinine Ratio 36 % 04/20/20 06:12 Glucose 121 mg/dL (65-100) H 04/20/20 06:12 POC Glucose 106 mg/dL (70-105) H 04/23/20 06:45 Hemoglobin A1c 6.3 % (4-6) H 04/20/20 06:12 Calcium 9.6 mg/dL (8.4-10.2) 04/20/20 06:12 Total Bilirubin 0.20 mg/dL (0.1-1.2) 04/20/20 06:12 AST 20 units/L (5-40) 04/20/20 06:12 ALT 18 units/L (7-56) 04/20/20 06:12 Alkaline Phosphatase 107 units/L (35-129) 04/20/20 06:12 Total Protein 6.4 g/dL (6.3-8.2) 04/20/20 06:12 Albumin 3.4 g/dL (3.9-5) L 04/20/20 06:12 Albumin/Globulin Ratio 1.1 % 04/20/20 06:12 Triglycerides 63 mg/dL (2-149) 04/20/20 06:12 Cholesterol 206 mg/dL (50-199) H 04/20/20 06:12 LDL Cholesterol Direct 126 mg/dL (50-130) 04/20/20 06:12 HDL Cholesterol 72 mg/dL (40-59) H 04/20/20 06:12 Cholesterol/HDL Ratio 2.86 % 04/20/20 06:12 Vitamin B12 511.5 pg/mL (211-911) 04/20/20 06:12 Folate 10.20 ng/mL (7.3-26.0) 04/20/20 06:12 TSH 1.750 mlU/mL (0.270-4.200) 04/20/20 06:12 Last Vital Signs Temp 97.9 F 04/23/20 19:52 Pulse 110 H 04/23/20 19:52 Resp 18 04/23/20 19:52 BP 136/72 04/23/20 19:52 Pulse Ox 98 04/23/20 19:52
[2020-04-24] MEDS: DIVALPROEX DR 125 MG TAB PO SCH ×2 (10:43→21:17)
[2020-04-24] MEDS: ALPRAZolam 0.5 MG TAB PO SCH (10:44)
[2020-04-24] MEDS: CYANOCOBALAMIN (VIT B-12) 1000 MCG TAB PO SCH (10:44)
[2020-04-24] MEDS: risperiDONE 1 MG TAB PO SCH ×2 (10:44→21:17)
[2020-04-24] MEDS: THIAMINE 100 MG TAB PO SCH (10:44)
--- NOTE | 2020-04-24 15:17 | XRay Report ---
CHEST 1 VIEW INDICATION / CLINICAL INFORMATION: Rule out TB. COMPARISON: None available. FINDINGS: SUPPORT DEVICES: None. HEART / MEDIASTINUM: The heart size and pulmonary vasculature are normal. LUNGS / PLEURA: No significant pulmonary or pleural abnormality. No pneumothorax. ADDITIONAL FINDINGS: There are mild degenerative changes involving the spine and both shoulders. Ther e is prior vertebroplasty near the thoracolumbar junction. IMPRESSION: No acute findings. No radiographic evidence of active tuberculosis. Signer Name: Manjeet Cole MD Signed: 04/24/2020 3:12 PM Workstation Name: [id number]
[2020-04-24] MEDS: MELATONIN 5 MG TAB PO SCH (21:17)
[2020-04-24] MEDS: traZODone 50 MG TAB PO SCH (21:17)
[2020-04-25 08:44] VITALS: BP 124/67
--- NOTE | 2020-04-25 09:10 | Progress Note ---
Subjective Date of service: 04/25/20 Principal diagnosis: dementia with behavioral disturbance Subjective Comment: Per Psych Nurse: Last evening the patient interacted well with her peers. She ate all of her snack and behavior was calm and cooperative. She denies si/hi/ah/vh. Overnight the patient rested quietly. She presents as sleeping 8 plus hour. Will continued to monitor patient for safety Psych Progress Patient seen this a.m., patient appears irritable and angry, and also asked who I was, not remembering me from yesterday's interaction. Patient reports she is not happy that she did not get to go home yesterday when she was told that she would, patient also has a follow-up for a picture of her and another - [place] male whom she refers to as alfonso. She reports she has not been in communication with Alfonso for a long time, but she is giving me an address for me to go over the and look for Alfonso. I informed patient she gives me Alfonso phone number then I can communicate with him, patient became very angry asking me to leave her alone. Reason for continued inpatient treatment: Patient ready to be discharged pending safety discharge and placement. REVIEW OF SYSTEMS Constitutional: Negative for weight loss ENT: Negative for stridor Respiratory: Negative for cough or hemoptysis All other systems reviewed and are negative MENTAL STATUS EXAMINATION General Appearance and Behavior: Age appropriate, good hygiene, not wearing appropriate clothes, calm and cooperative Cooperation: cooperative Psychomotor Behavior: Psychomotor normal Mood: "alright" Affect and affective range: congruent with stated mood Suicidal thoughts: Denies Homicidal: Denies Hallucinations: Denies Delusions: None elicited Insight and Judgment: Impaired Memory: Impaired Attention: limited Orientation: Confused Assessment and Plan Dementia with Behavioral Disturbance Treatment Plan continue current meds Patient admitted for inpatient psychiatric evaluation, medication adjustment and close monitoring The patient's behavior, mood, sleep and appetite will be closely monitored. Patient enrolled in individual and group therapeutic sessions and encouraged to attend. Patient provided with a safe and structured environment. Patient's physical health needs will be addressed by the Hospitalist. Hospitalist Consulted Labs including CBC, CMP, Lipid profile and Hemoglobin A1C levels ordered for baseline reference Social Assessment will be completed and the Science Specialist will work with patient and family to ensure a suitable and safe disposition Medication adjustment will be made as clinically indicated No changes made today Usual Wellness Religion/Preservation: The patient agreed on the treatment plan, understood the risk, benefit, alternative treatment, potential consequence of no treatment, and gave informed consent. Estimated days: 1 Post hospital care: primary care provider, psychiatric provider The case was staffed with Dr. Sunshine Medications and Allergies Allergies Allergy/AdvReac Type Severity Reaction Status Date / Time No Known Allergies Allergy Verified 04/20/20 02:32 Home Medications Medication Instructions Recorded Confirmed Last Taken Type ALPRAZolam [Xanax TAB] 0.25 mg PO DAILY #7 tablet 04/24/[address] [Depakote Dr] 250 mg PO BID #60 tablet 04/24/20 Unknown Rx Melatonin [Melatonin 5MG TAB] 5 mg PO HS 30 Days #30 tablet 04/24/20 Unknown Rx risperiDONE [RisperDAL] 1 mg PO BID 30 Days #60 tablet 04/24/20 Unknown Rx traZODone [Desyrel] 50 mg PO QHS #30 tablet 04/24/20 Unknown Rx Active Meds: Active Medications Alprazolam (Xanax) 0.5 mg PO DAILY [facility] Last Admin: 04/24/20 10:44 Dose: 0.5 mg Documented by: Cyanocobalamin (Vitamin B-12) 500 mcg PO DAILY [facility] Last Admin: 04/24/20 10:44 Dose: 500 mcg Documented by: Divalproex Sodium (Depakote Dr) 125 mg PO BID [facility] Last Admin: 04/24/20 21:17 Dose: 125 mg Documented by: Melatonin (Melatonin) 5 mg PO HS [facility] Last Admin: 04/24/20 21:17 Dose: 5 mg Documented by: Risperidone (Risperdal) 1 mg PO BID [facility] Last Admin: 04/24/20 21:17 Dose: 1 mg Documented by: Thiamine HCl (Vitamin B-1) 100 mg PO QDAY [facility] Last Admin: 04/24/20 10:44 Dose: 100 mg Documented by: Trazodone HCl (Desyrel) 50 mg PO QHS [facility] Last Admin: 04/24/20 21:17 Dose: 50 mg Documented by: Results - Results Labs/Vitals: Laboratory Last Values WBC 7.2 K/mm3 (4.5-11.0) 04/20/20 06:12 RBC 3.79 M/mm3 (3.65-5.03) 04/20/20 06:12 Hgb 11.0 gm/dl (10.1-14.3) 04/20/20 06:12 Hct 32.3 % (30.3-42.9) 04/20/20 06:12 MCV 85 fl (79-97) 04/20/20 06:12 MCH 29 pg (28-32) 04/20/20 06:12 MCHC 34 % (30-34) 04/20/20 06:12 RDW 13.3 % (13.2-15.2) 04/20/20 06:12 Plt Count 230 K/mm3 (140-440) 04/20/20 06:12 Lymph % (Auto) 21.1 % (13.4-35.0) 04/20/20 06:12 [place] % (Auto) 11.5 % (0.0-7.3) H 04/20/20 06:12 Eos % (Auto) 3.4 % (0.0-4.3) 04/20/20 06:12 Baso % (Auto) 0.8 % (0.0-1.8) 04/20/20 06:12 Lymph # (Auto) 1.5 K/mm3 (1.2-5.4) 04/20/20 06:12 [place] # (Auto) 0.8 K/mm3 (0.0-0.8) 04/20/20 06:12 Eos # (Auto) 0.2 K/mm3 (0.0-0.4) 04/20/20 06:12 Baso # (Auto) 0.1 K/mm3 (0.0-0.1) 04/20/20 06:12 Seg Neutrophils % 63.2 % (40.0-70.0) 04/20/20 06:12 Seg Neutrophils # 4.6 K/mm3 (1.8-7.7) 04/20/20 06:12 Sodium 142 mmol/L (137-145) 04/20/20 06:12 Potassium 4.6 mmol/L (3.6-5.0) 04/20/20 06:12 Chloride 105.4 mmol/L (98-107) 04/20/20 06:12 Carbon Dioxide 32 mmol/L (22-30) H 04/20/20 06:12 Anion Gap 9 mmol/L 04/20/20 06:12 BUN 25 mg/dL (7-17) H 04/20/20 06:12 Creatinine 0.7 mg/dL (0.6-1.2) 04/20/20 06:12 Estimated GFR > 60 ml/min 04/20/20 06:12 BUN/Creatinine Ratio 36 % 04/20/20 06:12 Glucose 121 mg/dL (65-100) H 04/20/20 06:12 POC Glucose 137 mg/dL (70-105) H 04/25/20 06:27 Hemoglobin A1c 6.3 % (4-6) H 04/20/20 06:12 Calcium 9.6 mg/dL (8.4-10.2) 04/20/20 06:12 Total Bilirubin 0.20 mg/dL (0.1-1.2) 04/20/20 06:12 AST 20 units/L (5-40) 04/20/20 06:12 ALT 18 units/L (7-56) 04/20/20 06:12 Alkaline Phosphatase 107 units/L (35-129) 04/20/20 06:12 Total Protein 6.4 g/dL (6.3-8.2) 04/20/20 06:12 Albumin 3.4 g/dL (3.9-5) L 04/20/20 06:12 Albumin/Globulin Ratio 1.1 % 04/20/20 06:12 Triglycerides 63 mg/dL (2-149) 04/20/20 06:12 Cholesterol 206 mg/dL (50-199) H 04/20/20 06:12 LDL Cholesterol Direct 126 mg/dL (50-130) 04/20/20 06:12 HDL Cholesterol 72 mg/dL (40-59) H 04/20/20 06:12 Cholesterol/HDL Ratio 2.86 % 04/20/20 06:12 Vitamin B12 511.5 pg/mL (211-911) 04/20/20 06:12 Folate 10.20 ng/mL (7.3-26.0) 04/20/20 06:12 TSH 1.750 mlU/mL (0.270-4.200) 04/20/20 06:12 Last Vital Signs Temp 98.7 F 04/25/20 08:41 Pulse 96 H 04/25/20 08:41 Resp 18 12/12/20 08:41 BP 124/67 04/25/20 08:41 Pulse Ox 96 04/25/20 08:41
[2020-04-25] MEDS: risperiDONE 1 MG TAB PO SCH (09:41)
[2020-04-25] MEDS: THIAMINE 100 MG TAB PO SCH (09:41)
[2020-04-25] MEDS: CYANOCOBALAMIN (VIT B-12) 1000 MCG TAB PO SCH (09:41)
[2020-04-25] MEDS: DIVALPROEX DR 125 MG TAB PO SCH (09:41)
[2020-04-25] MEDS: ALPRAZolam 0.5 MG TAB PO SCH (09:41)
--- NOTE | 2020-04-25 12:31 | Discharge Summary ---
Providers - Providers Date of Admission: 04/20/20 01:14 Date of discharge: 04/25/20 Attending physician: CHELSEA CERDA MD 04/19/20 18:20 Consult to Physician [CONS] Routine Comment: Consulting Provider: SERJIO GUERRERO Physician Instructions: Reason For Exam: manage medical conditions Primary care physician: YOUTH PROGRAM DIRECTOR Hospitalization Reason for admission: Danger to self, impaired reality Condition: Good Hospital course: The patient was provided inpatient psychiatric treatment with safe and suppor tive environment, group/individual therapy, psychiatric medication, medication adjustment, adverse effect monitor, medical evaluation, medical treatment, social service assessment, social support meeting, placement assessment and psycho-education. The patients mood, behavior, compliance to treatment and appreciation on family/social support are improved and stabilized. At the time of discharge, the patient no endangering behavior and no debilitating adverse effects. The family agreed on the treatment plan, understood the risk, benefit, alternative treatment, potential consequence of no treatment, and gave informed consent. Disposition: DC-01 TO HOME OR SELFCARE Allergies/Adverse Reactions: Allergies No Known Allergies Allergy (Verified 04/20/20 02:32) Vital Signs: Last Vital Signs Temp 98.7 F 04/25/20 08:41 Pulse 96 H 04/25/20 08:41 Resp 18 04/25/20 08:41 BP 124/67 04/25/20 08:41 Pulse Ox 96 04/25/20 08:41 Last Lab: Laboratory Last Values WBC 7.2 K/mm3 (4.5-11.0) 04/20/20 06:12 RBC 3.79 M/mm3 (3.65-5.03) 04/20/20 06:12 Hgb 11.0 gm/dl (10.1-14.3) 04/20/20 06:12 Hct 32.3 % (30.3-42.9) 04/20/20 06:12 MCV 85 fl (79-97) 04/20/20 06:12 MCH 29 pg (28-32) 04/20/20 06:12 MCHC 34 % (30-34) 04/20/20 06:12 RDW 13.3 % (13.2-15.2) 04/20/20 06:12 Plt Count 230 K/mm3 (140-440) 04/20/20 06:12 Lymph % (Auto) 21.1 % (13.4-35.0) 04/20/20 06:12 [place] % (Auto) 11.5 % (0.0-7.3) H 04/20/20 06:12 Eos % (Auto) 3.4 % (0.0-4.3) 04/20/20 06:12 Baso % (Auto) 0.8 % (0.0-1.8) 04/20/20 06:12 Lymph # (Auto) 1.5 K/mm3 (1.2-5.4) 04/20/20 06:12 [place] # (Auto) 0.8 K/mm3 (0.0-0.8) 04/20/20 06:12 Eos # (Auto) 0.2 K/mm3 (0.0-0.4) 04/20/20 06:12 Baso # (Auto) 0.1 K/mm3 (0.0-0.1) 04/20/20 06:12 Seg Neutrophils % 63.2 % (40.0-70.0) 04/20/20 06:12 Seg Neutrophils # 4.6 K/mm3 (1.8-7.7) 04/20/20 06:12 Sodium 142 mmol/L (137-145) 04/20/20 06:12 Potassium 4.6 mmol/L (3.6-5.0) 04/20/20 06:12 Chloride 105.4 mmol/L (98-107) 04/20/20 06:12 Carbon Dioxide 32 mmol/L (22-30) H 04/20/20 06:12 Anion Gap 9 mmol/L 04/20/20 06:12 BUN 25 mg/dL (7-17) H 04/20/20 06:12 Creatinine 0.7 mg/dL (0.6-1.2) 04/20/20 06:12 Estimated GFR > 60 ml/min 04/20/20 06:12 BUN/Creatinine Ratio 36 % 04/20/20 06:12 Glucose 121 mg/dL (65-100) H 04/20/20 06:12 POC Glucose 137 mg/dL (70-105) H 04/25/20 06:27 Hemoglobin A1c 6.3 % (4-6) H 04/20/20 06:12 Calcium 9.6 mg/dL (8.4-10.2) 04/20/20 06:12 Total Bilirubin 0.20 mg/dL (0.1-1.2) 04/20/20 06:12 AST 20 units/L (5-40) 04/20/20 06:12 ALT 18 units/L (7-56) 04/20/20 06:12 Alkaline Phosphatase 107 units/L (35-129) 04/20/20 06:12 Total Protein 6.4 g/dL (6.3-8.2) 04/20/20 06:12 Albumin 3.4 g/dL (3.9-5) L 04/20/20 06:12 Albumin/Globulin Ratio 1.1 % 04/20/20 06:12 Triglycerides 63 mg/dL (2-149) 04/20/20 06:12 Cholesterol 206 mg/dL (50-199) H 04/20/20 06:12 LDL Cholesterol Direct 126 mg/dL (50-130) 04/20/20 06:12 HDL Cholesterol 72 mg/dL (40-59) H 04/20/20 06:12 Cholesterol/HDL Ratio 2.86 % 04/20/20 06:12 Vitamin B12 511.5 pg/mL (211-911) 04/20/20 06:12 Folate 10.20 ng/mL (7.3-26.0) 04/20/20 06:12 TSH 1.750 mlU/mL (0.270-4.200) 04/20/20 06:12 Core Measure Documentation - Palliative Care Palliative Care/ Comfort Measures: Not Applicable - Core Measures Any of the following diagnoses?: none Exam - Constitutional Vitals: Temp Pulse Resp BP Pulse Ox 98.7 F 96 H 18 124/67 96 04/25/20 08:41 04/25/20 08:41 04/25/20 08:41 04/25/20 08:41 04/25/20 08:41 - EENT Eyes: Present: PERRL, EOM intact ENT: hearing intact, clear oral mucosa - Neck Neck: Present: supple, normal ROM - Respiratory Respiratory effort: normal - Abdominal Female genitourinary: Present: deferred - Rectal Rectal Exam: deferred - Integumentary Integumentary: Present: clear, warm, dry Plan Care Plan Goals: Goals: Maintain good and stable mental health. Plan of Treatment: The patient should be compliant with medications, not to use drugs and not to drink alcohol. The patient understands that if suicidal ideas, homicidal ideas, or any endangering thoughts arise, the patient should immediately seek for emergent assistance including but not limited to crisis hot line and emergency room. Follow up with outpatient Psychiatrist and PCP within 7 - 14 days of discharge. Follow up with: PRIMARY CARE,MD [Primary Care Provider] - 7 Days Prescriptions: traZODone [Desyrel] 50 mg PO QHS #[address] [Depakote Dr] 250 mg PO BID #60 tablet Melatonin [Melatonin 5MG TAB] 5 mg PO HS 30 Days #30 tablet risperiDONE [RisperDAL] 1 mg PO BID 30 Days #60 tablet ALPRAZolam [Xanax TAB] 0.25 mg PO DAILY #7 tablet
== END 2020-04-25 16:43 | disposition home or self-care (01) | DRG 884 ==
LOC: UNDOADMIN 17:55 → 3A 17:55 → 5A 04-20 01:14
PROVIDERS: ADMIT Psychiatry & Neurology Psychiatry; ATTEND Psychiatry & Neurology Psychiatry
DX: F01.50 Vascular dementia, unspecified severity, without behavioral disturbance, psychotic disturbance, mood disturbance, and anxiety (principal); Z20.828 Contact with and (suspected) exposure to other viral communicable diseases; I67.2 Cerebral atherosclerosis; Z79.899 Other long term (current) drug therapy; Z79.01 Long term (current) use of anticoagulants
CPT/HCPCS: 36415; 71045; 80053; 80061; 82607; 82747; 82962; 83036; 84443; 85025; G0378; U0003